=== PATIENT | female | born 1965 | race Asian ===

== ENCOUNTER → 2017-05-20 | Outpatient (CLI) | payer MEDICAID | LOC: FIMAGING 08:35 | PROVIDERS: ATTEND Family Medicine | DX: Z12.31 Encounter for screening mammogram for malignant neoplasm of breast (principal) ==

== ENCOUNTER → 2018-07-13 | Outpatient (CLI) | payer MEDICAID | LOC: FIMAGING 11:40 | DX: Z12.31 Encounter for screening mammogram for malignant neoplasm of breast (principal) ==